=== PATIENT | female | born 1945 ===

== ENCOUNTER 2019-03-11 05:03 | Day surgery (SDC) | payer OTHER ==
[~2019-03-11 05:03] MED LIST: LEVOTHY PO
[2019-03-11] MEDS ORDERED: MACROBID 100 M100 MG PO (09:39)
[2019-03-11] MEDS ORDERED: ULTRACET PO (09:39)
== END 2019-03-11 13:45 | disposition home or self-care (01) ==
LOC: CIR.AMB 05:03
DX: N81.3 Complete uterovaginal prolapse (principal)